=== PATIENT | female | born 1945 | race Caucasian/White ===

== ENCOUNTER → 2016-06-16 | Outpatient (CLI) | payer MEDICARE ==
[~2016-06-16] MED LIST: ALDACTONE 25MG25 MG PO; ASPIRIN EC81 MG PO; CARBIDOPA-LEVO1 EAC1 PO; CLONAZEPAM1 MG PO; CONSTULOSE10 GM/15 M PO; CYANOCOBAL1000 MCG/1 INJ; DILTIAZEM 24HR180 M1 PO; FOLIC ACID1 MG PO; HYDRALAZINE HCL25 MG PO; LEXAPRO TAB 1010 MG PO; METHIMAZOLE5 MG PO; NAMENDA XR28 MG PO; NYSTATIN-TRIAMC15 GM TOP; PRAVACHOL20 MG PO; PROTONIX 40 MG40 M1 PO
== END ==
LOC: LAB 17:21
DX: G31.83 Neurocognitive disorder with Lewy bodies (principal); E53.8 Deficiency of other specified B group vitamins
CPT/HCPCS: 36415; 82607; 82746; 83921; 84207; 86618

== ENCOUNTER 2016-06-17 19:03 | Inpatient (IN) | payer MEDICARE, OTHER ==
[~2016-06-17] VITALS: Ht 170.2 cm; Wt 108.4 kg
[2016-06-17 20:48] LABS: BUN/CREATININE RATIO 11 (0-10)
[2016-06-17 21:15] LABS: HEMOGLOBIN 13.9 gm/dl (12.3-15.3); RED BLOOD COUNT 4.4 M/UL (4.00-5.10); WHITE BLOOD COUNT 8.3 K/UL (4.5-11.0)
[2016-06-18 07:54] LABS: HEMOGLOBIN 11.7 gm/dl (12.3-15.3); RED BLOOD COUNT 3.85 M/UL (4.00-5.10); WHITE BLOOD COUNT 4.9 K/UL (4.5-11.0)
[2016-06-18] MEDS ORDERED: CARBIDOPA-LEVO1 EAC1 PO (09:24)
[2016-06-18] MEDS ORDERED: NAMENDA XR28 MG PO (09:25)
[2016-06-18] MEDS ORDERED: LEXAPRO TAB 1010 MG PO (09:25)
[2016-06-18] MEDS ORDERED: CLONAZEPAM1 MG PO (09:27)
[2016-06-18] MEDS ORDERED: CONSTULOSE10 GM/15 M PO (09:28)
[2016-06-18] MEDS ORDERED: CYANOCOBAL1000 MCG/1 INJ (09:32)
[2016-06-18] MEDS ORDERED: FOLIC ACID1 MG PO (09:33)
[2016-06-18] MEDS ORDERED: ASPIRIN EC81 MG PO (09:38)
[2016-06-18] MEDS ORDERED: NYSTATIN-TRIAMC15 GM TOP (09:38)
[2016-06-18] MEDS ORDERED: ALDACTONE 25MG25 MG PO (09:40)
[2016-06-18] MEDS ORDERED: HYDRALAZINE HCL25 MG PO (09:42)
[2016-06-18] MEDS ORDERED: DILTIAZEM 24HR180 M1 PO (09:42)
[2016-06-18] MEDS ORDERED: METHIMAZOLE5 MG PO (09:44)
[2016-06-18] MEDS ORDERED: PROTONIX 40 MG40 M1 PO (09:49)
[2016-06-18] MEDS ORDERED: PRAVACHOL20 MG PO (09:49)
[2016-06-19 05:16] LABS: HEMOGLOBIN 11.6 gm/dl (12.3-15.3); RED BLOOD COUNT 3.77 M/UL (4.00-5.10)
--- NOTE | 2016-06-22 16:54 | NUR ---
patient voided with no difficulty after saba discontinued
[2016-06-29 12:08] LABS: HEMOGLOBIN 11.7 gm/dl (12.3-15.3); RED BLOOD COUNT 3.8 M/UL (4.00-5.10); WHITE BLOOD COUNT 3.3 K/UL (4.5-11.0)
--- NOTE | 2016-06-29 17:20 | NUR ---
PATIENT GOT AGITATED, HITTING FAMILY MEMBER AND STAFF. REPORTED TO DR. DOUGLAS, RECEIVED ORDER.
== END 2016-06-29 18:42 | DRG 682 ==
LOC: ER1 19:03 → ZEROF 06-18 02:30 → MED SURG 4 06-18 02:30 → PROG CARE 06-18 20:00 → MED SURG 4 06-21 10:26
PROVIDERS: Family Medicine; Internal Medicine; Internal Medicine Infectious Disease; ADMIT Internal Medicine
DX: N17.9 Acute kidney failure, unspecified (principal); J96.01 Acute respiratory failure with hypoxia; G93.41 Metabolic encephalopathy; J18.9 Pneumonia, unspecified organism; N39.0 Urinary tract infection, site not specified; E87.3 Alkalosis; E87.1 Hypo-osmolality and hyponatremia; E86.0 Dehydration; G20 Parkinson's disease; L89.312 Pressure ulcer of right buttock, stage 2; R55 Syncope and collapse; F01.50 Vascular dementia, unspecified severity, without behavioral disturbance, psychotic disturbance, mood disturbance, and anxiety; I12.9 Hypertensive chronic kidney disease with stage 1 through stage 4 chronic kidney disease, or unspecified chronic kidney disease; N18.3 Chronic kidney disease, stage 3 (moderate); E78.5 Hyperlipidemia, unspecified; K21.9 Gastro-esophageal reflux disease without esophagitis; E53.8 Deficiency of other specified B group vitamins; B96.20 Unspecified Escherichia coli [E. coli] as the cause of diseases classified elsewhere; G30.9 Alzheimer's disease, unspecified; F02.80 Dementia in other diseases classified elsewhere, unspecified severity, without behavioral disturbance, psychotic disturbance, mood disturbance, and anxiety; K59.04 Chronic idiopathic constipation; Z86.73 Personal history of transient ischemic attack (TIA), and cerebral infarction without residual deficits; Z90.710 Acquired absence of both cervix and uterus; Z88.3 Allergy status to other anti-infective agents; Z88.5 Allergy status to narcotic agent; Z88.2 Allergy status to sulfonamides; Z82.49 Family history of ischemic heart disease and other diseases of the circulatory system; Z84.89 Family history of other specified conditions; Z74.01 Bed confinement status
CPT/HCPCS: 36415; 36600; 51701; 70450; 70551; 71010; 80048; 80053; 81001; 82570; 82803; 84300; 84443; 85025; 85027; 87040; 87077; 87086; 87186; 92526; 92610; 93005; 96361; 96365; 96366; 96367; 96368; 96372; 96375; 97110; 97116; 97530; 99285; J0456; J0696; J1200; J1335; J1650; J2930; J7030; J7050

== ENCOUNTER 2020-05-07 10:21 | Emergency (ER) | payer MEDICARE, OTHER ==
[~2020-05-07 10:21] MED LIST changes: -CARBIDOPA-LEVO1 EAC1 PO; -LEXAPRO TAB 1010 MG PO; -NAMENDA XR28 MG PO; -PRAVACHOL20 MG PO
[2020-07-14] MEDS ORDERED: ELIQUIS5 MG PO (18:14)
[2020-07-16] MEDS ORDERED: CARBIDOPA-LEVO1 EA14 PO (09:24)
[2020-07-16] MEDS ORDERED: NAMENDA10 MG PO (09:25)
[2020-07-16] MEDS ORDERED: LEXAPRO20 MG PO (09:25)
[2020-07-16] MEDS ORDERED: PRAVASTATIN SOD20 MG PO (09:49)
== END 2020-05-07 16:05 | disposition home or self-care (01) ==
LOC: ER1 10:21
DX: S09.90XA Unspecified injury of head, initial encounter (principal); L89.102 Pressure ulcer of unspecified part of back, stage 2; Z88.2 Allergy status to sulfonamides; Z88.5 Allergy status to narcotic agent; W06.XXXA Fall from bed, initial encounter; Y92.129 Unspecified place in nursing home as the place of occurrence of the external cause
CPT/HCPCS: 70450; 71045; 71250; 72125; 72170; 99285

== ENCOUNTER 2020-05-23 19:18 | Emergency (ER) | payer MEDICARE, OTHER ==
[2020-05-23 22:17] LABS: HEMOGLOBIN 11.8 gm/dl (12.3-15.3); RED BLOOD COUNT 3.91 M/UL (4.00-5.10); WHITE BLOOD COUNT 8.8 K/UL (4.5-11.0)
[2020-07-14] MEDS ORDERED: ELIQUIS5 MG PO (18:14)
[2020-07-16] MEDS ORDERED: CARBIDOPA-LEVO1 EA14 PO (09:24)
[2020-07-16] MEDS ORDERED: LEXAPRO20 MG PO (09:25)
[2020-07-16] MEDS ORDERED: NAMENDA10 MG PO (09:25)
[2020-07-16] MEDS ORDERED: PRAVASTATIN SOD20 MG PO (09:49)
== END 2020-05-24 08:28 ==
LOC: ER1 19:18 → CDU 23:19 → ER1 05-24 08:28 → CDU 05-24 08:28
PROVIDERS: Emergency Medicine
DX: A41.9 Sepsis, unspecified organism (principal); R65.20 Severe sepsis without septic shock; N13.2 Hydronephrosis with renal and ureteral calculous obstruction; N17.9 Acute kidney failure, unspecified; E87.1 Hypo-osmolality and hyponatremia; Z86.73 Personal history of transient ischemic attack (TIA), and cerebral infarction without residual deficits
CPT/HCPCS: 36415; 71045; 80048; 80053; 81001; 83605; 83690; 83735; 84100; 85025; 87040; 87077; 87086; 87186; 96374; 96375; 99285; J0696; J2270; J7030; J7120

== ENCOUNTER 2020-07-16 12:10 | Inpatient (IN) | payer MEDICARE, OTHER ==
[~2020-07-16] VITALS: Ht 180.3 cm; Wt 92.2 kg
[~2020-07-16 12:10] MED LIST changes: +CARBIDOPA-LEVO1 EA14 PO; +ELIQUIS5 MG PO; +LEXAPRO20 MG PO; +NAMENDA10 MG PO; +PRAVASTATIN SOD20 MG PO
[2020-07-16 14:14] LABS: HEMOGLOBIN 10.1 gm/dl (12.3-15.3); RED BLOOD COUNT 3.7 M/UL (4.00-5.10); WHITE BLOOD COUNT 12.1 K/UL (4.5-11.0)
[2020-07-16] MEDS ORDERED: KLONOPIN TAB 00.5 MG PO (16:21)
[2020-07-16] MEDS ORDERED: CARVEDILOL3.125 MG PO (16:21)
[2020-07-16] MEDS ORDERED: LEVOCETIRIZINE D5 MG PO (16:23)
[2020-07-16] MEDS ORDERED: TYLENOL EXTRA500 MG PO (17:58)
[2020-07-16] MEDS ORDERED: VITAMIN C 500500 MG PO (17:59)
[2020-07-16] MEDS ORDERED: LAXATIVE SUPPOS10 MG PR (18:00)
[2020-07-16] MEDS ORDERED: VITAMIN D325 MC6 PO (18:03)
[2020-07-16] MEDS ORDERED: DAKIN'S473 M1 TOP ×2 (18:08→18:11)
[2020-07-16] MEDS ORDERED: ARICEPT10 MG PO (18:12)
[2020-07-16] MEDS ORDERED: FLONASE 0.05% N16 GM (18:16)
[2020-07-16] MEDS ORDERED: FERROUS SU220 MG/5 M PO (18:16)
[2020-07-16] MEDS ORDERED: IPRAT-ALBUT 0.5-3 ML INH (18:18)
[2020-07-16] MEDS ORDERED: LACTULOSE10 GM/15 M PO (18:20)
[2020-07-16] MEDS ORDERED: MIRALAX17 GM PO (18:22)
[2020-07-16] MEDS ORDERED: LINZESS290 MCG PO (18:22)
[2020-07-16] MEDS ORDERED: DAILY VITE1 EACH PO (18:23)
[2020-07-16] MEDS ORDERED: MACRODANTIN50 MG PO (18:26)
[2020-07-16] MEDS ORDERED: HYDROCODONE-AC1 EACH PO (18:28)
[2020-07-16] MEDS ORDERED: NYSTATIN15 GM TOP (18:30)
[2020-07-16] MEDS ORDERED: MYCOSTATIN POWD15 GM TOP (18:32)
[2020-07-16] MEDS ORDERED: OMEPRAZOLE20 MG PO (18:33)
[2020-07-16] MEDS ORDERED: PROMOD 946 ML BT1 EA PO (18:35)
[2020-07-16] MEDS ORDERED: SENNA8.6 MG PO (18:35)
[2020-07-16] MEDS ORDERED: SINGULAIR10 MG PO (18:36)
[2020-07-16] MEDS ORDERED: VENELEX OINTMENT5 G1 TOP (18:38)
[2020-07-16] MEDS ORDERED: ZINC50 MG PO (18:39)
[2020-07-17 02:12] LABS: RED BLOOD COUNT 2.94 M/UL (4.00-5.10)
[2020-07-18 03:58] LABS: ACINETOBACTER BAUMANNII Not Detected (Negative); CANDIDA ALBICANS Not Detected (Negative); CANDIDA KRUSEI Not Detected (Negative); CANDIDA TROPICALIS Not Detected (Negative); ENTEROCOCCUS Not Detected (Negative); ESCHERICHIA COLI Not Detected (Negative); HAEMOPHILUS INFLUENZAE Not Detected (Negative); KLEBSIELLA OXYTOCA Not Detected (Negative); KLEBSIELLA PNEUMONIAE Not Detected (Negative); KPC-CARBAPENEM-RESISTANCE GENE Not Detected (Negative); PROTEUS Not Detected (Negative); PSEUDOMONAS AERUGINOSA Not Detected (Negative); SERRATIA MARCESANS Not Detected (Negative); STAPHYLOCOCCUS AUREUS Not Detected (Negative); STREP AGALACTIAE (GROUP B) Not Detected (Negative); STREP PYOGENES (GROUP A) Not Detected (Negative); STREPTOCOCCUS Not Detected (Negative); vanA/B (VANCOMYCIN RESIST GENE Not Detected (Negative)
[2020-07-18 04:24] LABS: STAPHYLOCOCCUS DETECTED (Negative); mecA (METHICILLIN RESIST GENE DETECTED (Negative)
[2020-07-18 04:46] LABS: HEMOGLOBIN 7.9 gm/dl (12.3-15.3); RED BLOOD COUNT 2.95 M/UL (4.00-5.10); WHITE BLOOD COUNT 7.1 K/UL (4.5-11.0)
[2020-07-18 05:04] LABS: BUN/CREATININE RATIO 61 (0-10)
--- NOTE | 2020-07-18 05:55 | NUR ---
patients vancomycin trough this morning is 20, spoke with Estella in pharmacy and she instructed me to hang to 6am dose of vancomycin
[2020-07-18 16:01] LABS: BUN/CREATININE RATIO 62 (0-10)
[2020-07-19 04:41] LABS: HEMOGLOBIN 8.6 gm/dl (12.3-15.3); WHITE BLOOD COUNT 7.1 K/UL (4.5-11.0)
[2020-07-19 04:42] LABS: RED BLOOD COUNT 3.26 M/UL (4.00-5.10)
[2020-07-19 05:46] LABS: BUN/CREATININE RATIO 65 (0-10)
[2020-07-20 03:34] LABS: RED BLOOD COUNT 3.01 M/UL (4.00-5.10); WHITE BLOOD COUNT 5.9 K/UL (4.5-11.0)
[2020-07-20 04:07] LABS: BUN/CREATININE RATIO 55 (0-10)
[2020-07-21 04:29] LABS: HEMOGLOBIN 7.8 gm/dl (12.3-15.3); RED BLOOD COUNT 2.86 M/UL (4.00-5.10); WHITE BLOOD COUNT 6.1 K/UL (4.5-11.0)
[2020-07-21 04:36] LABS: BUN/CREATININE RATIO 62 (0-10)
[2020-07-22 06:19] LABS: HEMOGLOBIN 7.7 gm/dl (12.3-15.3); RED BLOOD COUNT 2.83 M/UL (4.00-5.10); WHITE BLOOD COUNT 5.6 K/UL (4.5-11.0)
[2020-07-22 06:54] LABS: BUN/CREATININE RATIO 48 (0-10)
[2020-07-23 04:38] LABS: HEMOGLOBIN 7.7 gm/dl (12.3-15.3); RED BLOOD COUNT 2.94 M/UL (4.00-5.10); WHITE BLOOD COUNT 5.1 K/UL (4.5-11.0)
[2020-07-23 04:41] LABS: BUN/CREATININE RATIO 51 (0-10)
--- NOTE | 2020-07-23 16:58 | NUR ---
1445 - BEDSIDE PROCEDURE PERFORMED PER DR BRINK. LEFT FIFTH METATARSAL BLISTER DRAINED AND TISSUE REMOVED. NO CULTURE OBTAINED PER DR BRINK. AREA CLEANSED WITH WOUND CLEANSER, POVIDINE OINTMENT APPLIED. IODINE SOAKED 4X4 WEAVED BETWEEN TOES. SANTYL APPLIED TO LEFT HEEL WOUND AND AREA WRAPPED WITH GUAZE. RIGHT HEEL CLEANED WITH WOUND CLEANSER AND SANTYL APPLIED. AREA COVERED WITH 4X4'S AND GUAZE APPLIED
[2020-07-24 04:19] LABS: HEMOGLOBIN 8.1 gm/dl (12.3-15.3); RED BLOOD COUNT 3.04 M/UL (4.00-5.10); WHITE BLOOD COUNT 5.6 K/UL (4.5-11.0)
[2020-07-24 04:31] LABS: BUN/CREATININE RATIO 53 (0-10)
[2020-07-25 06:58] LABS: HEMOGLOBIN 8.6 gm/dl (12.3-15.3); RED BLOOD COUNT 3.18 M/UL (4.00-5.10)
[2020-07-25 06:59] LABS: WHITE BLOOD COUNT 7.4 K/UL (4.5-11.0)
[2020-07-25 07:18] LABS: BUN/CREATININE RATIO 61 (0-10)
[2020-07-26 04:20] LABS: BUN/CREATININE RATIO 48 (0-10)
[2020-07-27 05:16] LABS: RED BLOOD COUNT 3.39 M/UL (4.00-5.10)
[2020-07-27 05:36] LABS: BUN/CREATININE RATIO 41 (0-10)
[2020-07-28 05:44] LABS: BUN/CREATININE RATIO 37 (0-10)
[2020-07-29 06:02] LABS: BUN/CREATININE RATIO 44 (0-10)
--- NOTE | 2020-07-30 03:04 | NUR ---
07/30/20 0304 PT HAS NOT HAD ANYMORE VOMITING.
--- NOTE | 2020-07-30 04:34 | NUR ---
07/30/20 0430 PT HR 115 TO 140 SINUS TACH NOTED. SPOKE WITH STORE GROCERY MERCHANDISER STATES SINUS TACH. PT SEEMS AGITATED LAB JUST LEFT AND I WENT TO FIX TELEMTERY AND O2 SAT MONITOR. PT DONT LIKE TO TOUCH.
--- NOTE | 2020-07-30 06:26 | NUR ---
[id number] SAVANNA ATTEMPTED X3 TO RESTART IV BUT UNSUCESSFUL. IV KEEP BLOWING. CALLED HOUSE NO RESOURCE NURSE TODAY.
--- NOTE | 2020-07-30 08:17 | NUR ---
CALLED AT THIS TIME OVER CHANGE IN PATIENT CONDITION. I INFORMED HIM THAT THE PATIENT HAD BEEN VOMITTING,THAT HER ABDOMEN WAS STILL FIRM AND DESTENDED DESPITE THE TUBE FEEDING BEING ON HOLD, THAT THE PATIENT WAS REQUIRING ADDITIONAL O2 SUPPORT TO MAINTAIN SATS ABOVE 90% AND THAT HER HEART RATE HAD BEEN REACHING THE 130'S-140'S. I ALSO ASKED IF HE WANTED TO [facility] HE STATES THAT HE WILL COME AND SEE THE PATIENT AND MAKE A DECISION. FAMILY AND PATIENT UPDATED ON PLAN OF CARE.
--- NOTE | 2020-07-30 10:46 | NUR ---
NG TUBE PLACED PER PROVIDER VERBAL ORDER. XRAY ORDERED TO CONFIRM PLACEMENT
--- NOTE | 2020-07-30 14:52 | NUR ---
REPORT CALLED TO PCU AT THIS TIME. SPOKE WITH RUT JOHNS.
[2020-07-31 05:07] LABS: BUN/CREATININE RATIO 39 (0-10)
[2020-08-01 02:59] LABS: HEMOGLOBIN 8.4 gm/dl (12.3-15.3); RED BLOOD COUNT 3.22 M/UL (4.00-5.10); WHITE BLOOD COUNT 10.8 K/UL (4.5-11.0)
[2020-08-01 03:15] LABS: BUN/CREATININE RATIO 43 (0-10)
--- NOTE | 2020-08-01 12:00 | NUR ---
DR BIRNK AT BEDSIDE TO TALK TO FAMILY AND DEBRIDE RIGHT HEEL
--- NOTE | 2020-08-01 12:40 | NUR ---
FARRUKH FROM HOSPICE HERE TO TALK TO FAMILY RE: PT CONDITION
--- NOTE | 2020-08-01 12:45 | NUR ---
DRESSING CHANGED TO BILATERAL HEELS, CLEANED WITH SALINE, SANTYL AND WET TO DRY DRESSING APPLIED PER DR BRINK ORDER.
--- NOTE | 2020-08-01 16:30 | NUR ---
DR CONNORS NOTIFIED OF DR MASTERS CONSULT TO TALK TO FAMILY RE: PT CONDITION
[2020-08-02 09:35] LABS: HEMOGLOBIN 8.6 gm/dl (12.3-15.3); RED BLOOD COUNT 3.25 M/UL (4.00-5.10); WHITE BLOOD COUNT 9.2 K/UL (4.5-11.0)
[2020-08-02 09:56] LABS: BUN/CREATININE RATIO 34 (0-10)
[2020-08-03 05:08] LABS: RED BLOOD COUNT 3.12 M/UL (4.00-5.10); WHITE BLOOD COUNT 8.2 K/UL (4.5-11.0)
[2020-08-03 09:47] LABS: BUN/CREATININE RATIO 32 (0-10)
[2020-08-04 05:25] LABS: HEMOGLOBIN 8.3 gm/dl (12.3-15.3); RED BLOOD COUNT 3.14 M/UL (4.00-5.10); WHITE BLOOD COUNT 6.4 K/UL (4.5-11.0)
[2020-08-04 05:43] LABS: BUN/CREATININE RATIO 27 (0-10)
[2020-08-05 02:45] LABS: HEMOGLOBIN 7.6 gm/dl (12.3-15.3); RED BLOOD COUNT 2.9 M/UL (4.00-5.10); WHITE BLOOD COUNT 6.1 K/UL (4.5-11.0)
[2020-08-05 03:10] LABS: BUN/CREATININE RATIO 25 (0-10)
[2020-08-06 02:33] LABS: HEMOGLOBIN 7.8 gm/dl (12.3-15.3); RED BLOOD COUNT 2.95 M/UL (4.00-5.10); WHITE BLOOD COUNT 5.6 K/UL (4.5-11.0)
[2020-08-06 02:48] LABS: BUN/CREATININE RATIO 19 (0-10)
[2020-08-07 02:36] LABS: HEMOGLOBIN 8.4 gm/dl (12.3-15.3); RED BLOOD COUNT 3.18 M/UL (4.00-5.10); WHITE BLOOD COUNT 6.7 K/UL (4.5-11.0)
[2020-08-07 03:06] LABS: BUN/CREATININE RATIO 24 (0-10)
--- NOTE | 2020-08-07 15:05 | NUR ---
REPORT CALLED TO ANDREAS EPPERSON ON MED SURG 4, PT WILL BE GOING TO RM [id number] ON TELE AND CONT. PULSE OX
--- NOTE | 2020-08-07 16:06 | NUR ---
WOUND CARE DONE TO BILATERAL HEELS, CLEANSED WITH WOUND MEDICAL CENTER MANAGER, SANTYL APPLIED FOLLOWED BY WET TO DRY DRESSING, 4X4'S AND KERLIX. DRESSINGS WERE TIMED AND DATED.
--- NOTE | 2020-08-07 17:21 | NUR ---
REPORT CALLED TO ANDREAS ZUÑIGA ON MED SURG 5, PT WILL BE GOING TO RM [id number] AND NOT THE PREVIOUS REPORTED ROOM
--- NOTE | 2020-08-10 12:34 | NUR ---
PATIENT HAS VITALS OF TEMP:100.3 PULSE:125 BP:89/71 RESP:18 O2SAT:98% DR SOLER WAS CALLED AND ORDERED SEPSIS PROTOCOL, URINE CULTURE, BLOOD CULTURE, 500 NS BOLUS AND ZOSYN Q6 FOR INTRA ABDOMINAL INFECTION.
[2020-08-10 13:51] LABS: HEMOGLOBIN 9.4 gm/dl (12.3-15.3); RED BLOOD COUNT 3.61 M/UL (4.00-5.10); WHITE BLOOD COUNT 14.8 K/UL (4.5-11.0)
--- NOTE | 2020-08-10 16:33 | NUR ---
CALLED PROVIDER WITH PATIENT VITALS, AND FACT THAT PATIENT IS SWEATING AND CLAMMY. LEFT MESSAGE AND CALL BACK NUMBER.
--- NOTE | 2020-08-10 16:48 | NUR ---
DOCTOR RYDER CALLED BACK, I GAVE HIM A FULL SET OF VITALS AND HE DECIDED TO MOVE PATIENT TO PCU. CALLED HOUSE TO INFORM.
--- NOTE | 2020-08-10 19:23 | NUR ---
PATIENT HAD BLACK WATERY EMESIS EARLY THIS AM, AND LATER THIS AFTER NOON JUST BEFORE GOING TO PCU. PHYSICIAN IS AWARE.
== END 2020-08-11 00:49 | disposition expired | DRG 853 ==
LOC: ER1 12:10 → PROG CARE 15:45 → M/S 15:45 → MED SURG 4 15:45 → CDU 15:45 → PROG CARE 18:02 → MED SURG 4 07-20 11:40 → PROG CARE 07-30 15:38 → M/S 08-07 15:28 → PROG CARE 08-07 15:28 → M/S 08-07 17:52 → PROG CARE 08-10 18:12
PROVIDERS: Emergency Medicine; Internal Medicine; ADMIT Internal Medicine
PROC: 0SC Lower Joints, Extirpation (ICD-10-PCS; principal; 2020-07-23)
PROC: 0HDMXZZ Extraction of Right Foot Skin, External Approach (ICD-10-PCS; 2020-08-01)
PROC: 0DH67UZ Insertion of Feeding Device into Stomach, Via Natural or Artificial Opening (ICD-10-PCS; 2020-08-01)
PROC: 5A12012 Performance of Cardiac Output, Single, Manual (ICD-10-PCS; 2020-08-11)
PROC: 0BH17EZ Insertion of Endotracheal Airway into Trachea, Via Natural or Artificial Opening (ICD-10-PCS; 2020-08-11)
DX: A41.9 Sepsis, unspecified organism (principal); L89.154 Pressure ulcer of sacral region, stage 4; R65.21 Severe sepsis with septic shock; G93.41 Metabolic encephalopathy; J69.0 Pneumonitis due to inhalation of food and vomit; R53.2 Functional quadriplegia; R40.20 Unspecified coma; J96.01 Acute respiratory failure with hypoxia; I82.401 Acute embolism and thrombosis of unspecified deep veins of right lower extremity; N39.0 Urinary tract infection, site not specified; E87.0 Hyperosmolality and hypernatremia; N17.9 Acute kidney failure, unspecified; I96 Gangrene, not elsewhere classified; K56.7 Ileus, unspecified; K56.690 Other partial intestinal obstruction; C18.9 Malignant neoplasm of colon, unspecified; K57.90 Diverticulosis of intestine, part unspecified, without perforation or abscess without bleeding; F03.90 Unspecified dementia, unspecified severity, without behavioral disturbance, psychotic disturbance, mood disturbance, and anxiety; R13.10 Dysphagia, unspecified; B96.5 Pseudomonas (aeruginosa) (mallei) (pseudomallei) as the cause of diseases classified elsewhere; R74.01 Elevation of levels of liver transaminase levels; E83.52 Hypercalcemia; I10 Essential (primary) hypertension; D50.9 Iron deficiency anemia, unspecified; Z20.822 Contact with and (suspected) exposure to COVID-19; L89.629 Pressure ulcer of left heel, unspecified stage; I73.9 Peripheral vascular disease, unspecified; L89.619 Pressure ulcer of right heel, unspecified stage; E86.0 Dehydration; Z74.01 Bed confinement status; Z86.73 Personal history of transient ischemic attack (TIA), and cerebral infarction without residual deficits; Y92.89 Other specified places as the place of occurrence of the external cause; Z88.1 Allergy status to other antibiotic agents; Z88.2 Allergy status to sulfonamides; Z88.8 Allergy status to other drugs, medicaments and biological substances; Z82.49 Family history of ischemic heart disease and other diseases of the circulatory system
CPT/HCPCS: 0241U; 31500; 36415; 36600; 70450; 71045; 71260; 73630; 73718; 74018; 80048; 80053; 80202; 81001; 82550; 82553; 82607; 82728; 82746; 82803; 82962; 83540; 83550; 83605; 83690; 83735; 84100; 84132; 84439; 84443; 84484; 85025; 85027; 85610; 85730; 87040; 87070; 87077; 87086; 87150; 87186; 87205; 92950; 93005; 93925; 94640; 94760; 96365; 96375; 99285; A6212; J0171; J0295; J0461; J1200; J1644; J1720; J1756; J2185; J2405; J2765; J2930; J3370; J3475; J3480; J7030; J7040; J7070; Q9967